=== PATIENT | male | born 1980 | race Caucasian/White ===

== ENCOUNTER 2017-09-22 19:46 | Inpatient (IN) ==
[2017-09-22] MEDS ORDERED: IOPAMIDOL 100 ML BOTTLE IJ ONE (19:47)
--- NOTE | 2017-09-22 20:40 | Emergency Department Note ---
Abdominal Pain HPI - General Chief Complaint: Abdominal Pain Stated Complaint: Stomach Ache Time Seen by Provider: 09/22/17 20:38 - History of Present Illness HPI Narrative: patient complains of mid epigastric since about 5:00 this morning. He vomited twice today. He still feels nauseated. He states he was laying around awith a stomach ache. Pain was in the epigastric are Similar pain before in the past when he's eaten too much. No fevers. No diarrhea. - Related Data Home Medications Medication Instructions Recorded Confirmed No Known Home Meds [No Known Home 09/22/17 09/22/17 Meds] Allergies Allergy/AdvReac Type Severity Reaction Status Date / Time No Known Drug Allergies Allergy Verified 09/22/17 19:52 Review of Systems All systems ED: reviewed and negative except as stated. Abdominal Pain PMH - Past Medical History Medical history: Reports: other (history of back pain) Surgical history ED: Reports: orthopedic, other - Social History Smoking status: Current every day smoker Alcohol use: Reports: Rarely Drug use: Reports: marijuana Physical Exam - General Limitations: no limitations General appearance: alert - Head Head exam: atraumatic, normocephalic - Eye Eye exam: Present: normal appearance, PERRL, EOMI. Absent: scleral icterus, conjunctival injection - ENT ENT exam: normal exam, normal oropharynx, mucous membranes moist - Neck Neck exam: Present: normal inspection, full ROM, trachea midline. Absent: tenderness - Chest Chest inspection: Present: normal inspection, symmetric chest wall rise - Respiratory Respiratory exam: Present: normal lung sounds bilaterally. Absent: respiratory distress, wheezes - Cardiovascular Cardiovascular exam: Present: regular rate, normal rhythm, normal heart sounds - Abdominal Exam Abdominal exam: Present: tenderness, normal bowel sounds. Absent: soft, distention, guarding, rebound, rigidity Abdominal tenderness: Present: epigastrium, mild - Extremities Exam Extremities exam: Present: normal inspection, full ROM - Back Exam Back exam: Present: normal inspection. Absent: CVA tenderness (R), CVA tenderness (L) - Neurological Exam Neurological exam: Present: alert, oriented X3, CN II-XII intact - Psychiatric Psychiatric exam: Present: normal affect, normal mood - Skin Skin exam: Present: warm, dry, intact Course - Reevaluation(s) Reevaluation #1: Later he told us that he took about 2 mg of Suboxone yesterday morning. He seemed okay during the day today. He got from a friend and seemed to be asymptomatic yesterday during the day. It is early in the morning with his symptoms started. Denies any bowel movement today, repeat abdominal exam was some discomfort right lower quadrant at this time. Vital Signs Temperature 97.7 F 09/22/17 19:47 Pulse Rate 64 09/22/17 19:47 Respiratory Rate 16 09/22/17 19:47 Blood Pressure 134/84 09/22/17 19:47 Pulse Oximetry (%) 100 09/22/17 19:47 Temperature 97.7 F 09/22/17 19:47 Pulse Rate 64 09/22/17 19:47 Respiratory Rate 16 09/22/17 19:47 Blood Pressure 134/84 09/22/17 19:47 Pulse Oximetry (%) 100 09/22/17 19:47 Abdominal Pain - MDM Narrative Medical decision making narrative: It turns out he ends up having a small bowel obstruction, appendix looked normal. At this point we will admit him to hospital, general surgery contacted , initial orders written. We will try NG tube decompression, IV fluids and pain management and proceed from there. Final diagnosis is small bowel obstruction, undetermined etiology. - Lab Data Result diagrams: 09/22/17 20:53 09/22/17 20:53 Lab Results 09/22/17 09/22/17 09/22/17 Range/Units 20:53 20:53 20:53 WBC 14.0 H (4.5-11.0) K/mcL RBC 5.38 (4.50-5.90) M/mcL Hgb 16.8 H (13.5-16.5) g/dL Hct 48.9 (41.0-55.0) % MCV 90.8 (80.0-100.0) fL MCH 31.1 (26.0-34.0) pg MCHC 34.3 (31.0-36.0) g/dL RDW 12.1 (11.5-14.5) % Plt Count 190 (140-440) K/mcL MPV 8.6 (7.4-10.4) fL Gran % 86.4 H (38.0-78.0) % Lymph % (Auto) 9.1 L (15.5-49.0) % [place] % (Auto) 3.2 (1.0-12.0) % Eos % (Auto) 1.2 (0.0-7.0) % Baso % (Auto) 0.1 (0.0-2.0) % Gran # 12.1 H (1.8-8.0) K/mcL Lymph # (Auto) 1.3 L (1.5-4.8) K/mcL [place] # (Auto) 0.4 (0.1-0.9) K/mcL Eos # (Auto) 0.2 (0.0-0.7) K/mcL Baso # (Auto) 0 (0.0-0.3) K/mcL Sodium 140 (133-145) mmol/L Potassium 4.0 (3.3-5.1) mmol/L Chloride 98 (96-108) mmol/L Carbon Dioxide 29 (22-30) mmol/L Anion Gap 13.0 (8-16) BUN 16 (6-20) mg/dl Creatinine 0.7 (0.7-1.2) mg/dl GFR Calculation 121 Glucose 134 H (70-105) mg/dL Calcium 9.6 (8.6-10.4) mg/dl Total Bilirubin 0.5 (0.0-1.0) mg/dL AST 22 (0-37) U/l ALT 31 (0-40) U/l Alkaline Phosphatase 61 (39-117) U/L C-Reactive Protein 1.9 H (0.0-0.8) mg/dl Total Protein 7.1 (5.9-8.4) gm/dL Albumin 4.2 (3.2-5.2) gm/dL Globulin 2.9 (2.2-3.7) gm/dL Albumin/Globulin Ratio 1.4 (1.0-2.3) Lipase 12 (7-60) U/L Disposition Pt seen by M[facility] MACHINE OPERATOR/PA only: No Clinical Impression: Small bowel obstruction Disposition: Xfer As Inpt ([facility]) Condition: Good
[2017-09-22] MEDS ORDERED: PANTOPRAZOLE 40 MG VIAL IV ONE (20:41)
[2017-09-22] MEDS ORDERED: HYDROmorphone 2 MG/ML SYRINGE IV PRN (20:41)
[2017-09-22] MEDS ORDERED: ONDANSETRON 4 MG/2 ML VIAL IV ONE (20:41)
[2017-09-22] MEDS ORDERED: LACTATED RINGERS 1,000 ML IV ONE (20:41)
[2017-09-22] MEDS ORDERED: diphenhydrAMINE 50 MG/ML VIAL IV ONE (21:20)
[2017-09-22] MEDS ORDERED: PROMETHAZINE 25 MG/ML VIAL IV ONE (21:20)
[2017-09-22 21:57] LABS: Basophils # (Auto) 0 K/mcL (0.0-0.3); Basophils % (Auto) 0.1 % (0.0-2.0); Eosinophils # (Auto) 0.2 K/mcL (0.0-0.7); Eosinophils % (Auto) 1.2 % (0.0-7.0); Granulocytes % (Auto) 86.4 % (38.0-78.0); Lymphocytes # (Auto) 1.3 K/mcL (1.5-4.8); Lymphocytes % (Auto) 9.1 % (15.5-49.0); Mean Cell Volume 90.8 fL (80.0-100.0); Mean Corpuscular HGB Conc 34.3 g/dL (31.0-36.0); Mean Corpuscular Hemoglobin 31.1 pg (26.0-34.0); Monocytes # (Auto) 0.4 K/mcL (0.1-0.9); Monocytes % (Auto) 3.2 % (1.0-12.0); Platelet Count 190 K/mcL (140-440); RBC 5.38 M/mcL (4.50-5.90); Red Cell Distribution Width 12.1 % (11.5-14.5)
[2017-09-22 22:15] LABS: ALT/SGPT 31 U/l (0-40); Albumin 4.2 gm/dL (3.2-5.2); Albumin/Globulin Ratio 1.4 (1.0-2.3); Alkaline Phosphatase 61 U/L (39-117); Blood Urea Nitrogen 16 mg/dl (6-20); Lipase 12 U/L (7-60)
[2017-09-23] MEDS ORDERED: ONDANSETRON 4 MG/2 ML VIAL IV PRN (00:03)
[2017-09-23] MEDS ORDERED: LIDOCAINE JEL 2% 1 TUBE 30GM TOPICAL ONE (00:36)
[2017-09-23] MEDS: 0.45 % SODIUM CHLORIDE 1,000 ML IV SCH ×4 (01:36→21:40)
--- NOTE | 2017-09-23 07:56 | XRay Report ---
HISTORY: Reason for Exam: Acute onset abdominal pain with nausea and vomiting FINDINGS: There are multiple loops of dilated small intestine with air-fluid levels. There is also moderate amount of fluid in the stomach. Normal amount stool is seen in the ascending colon. Distal colon is decompressed. No free intra-abdominal air is present. There is no apparent soft tissue mass or abnormal calcification. There are degenerative changes at the L4-S1 disc space level. IMPRESSION: Distal small bowel obstruction Interpreted and Authenticated by: Reuben Llanos 09/23/17
--- NOTE | 2017-09-23 08:04 | Cat Scan Report ---
CLINICAL INFORMATION: Reason for Exam:air fluid levels with small bowel obstruction FINDINGS: The patient was imaged following intravenous but no oral contrast scanning from the diaphragm to the symphysis pubis. Sagittal and coronal reformats were created. The lung bases are clear. The liver is normal in size. There is a 5 mm subcapsular cyst high in the medial segment left lobe. Gallbladder is partially contracted but there are no stones within the lumen of the sales not thickened or inflamed. The bile ducts are nondilated. The spleen is normal in size and homogeneous. There is no mass or inflammation the pancreas. The adrenals and kidneys are normal. No kidney stone or hydronephrosis are present. The stomach and small intestine are distended with a large amount of fluid. There is also a large amount of gas in the small intestine with multiple air-fluid levels. The mid small bowel measures up to 4.8 cm in diameter. The distal ileum is decompressed. The transition point cannot be clearly identified but is roughly in the midline of the upper pelvis. The colon is normal and the appendix is noninflamed. There is a small amount of ascites in the pelvis. No mass, free intra-abdominal air or abscess are identified within the abdomen or pelvis. There is also no evidence of a hernia or volvulus. Four Lumbar vertebra are present. There is disc space narrowing and spur formation at L4 S1. Is also mild arthritis in the SI joints bilaterally. IMPRESSION: Distal small bowel obstruction. The etiology is not clearly identified. Interpreted and Authenticated by: Reuben Llanos 09/23/17
--- NOTE | 2017-09-23 08:09 | XRay Report ---
HISTORY: Reason for Exam:Confirm NG placement for small bowel obstruction FINDINGS: There is a nasogastric tube in the fundus of the stomach pointing towards the left lateral abdominal wall. There is a moderate amount of gas in the stomach. There is less gastric fluid now than there was on the preceding CT scan. There are still dilated loops of small intestine in the upper abdomen. Lung bases are clear. IMPRESSION: Well-positioned nasogastric tube in the fundus of the stomach Persistent small bowel obstruction Interpreted and Authenticated by: Reuben Llanos 09/23/17
[2017-09-23] MEDS ORDERED: BENZOCAINE 1 SPRAY BOTTLE TOPICAL PRN (09:21)
--- NOTE | 2017-09-23 11:13 | General Surg History&Physical ---
History of Present Illness Patient information: Note initiated : 09/23/17 at 11:08 am Service Date, if different from initiated Date: [] Patient: Lake Chen 37 y/o M admitted on 09/23/17 for Stomach Ache/ Small Bowel Obstruction. Chief Complaint: [Abdominal pain nausea and vomiting] 1 1 is HPI: Mr. Chen is a 37 year old M with acute onset of severe abdominal pain followed by nausea and vomiting about 0500 on 22 September.. The pain was in the mid abdomen and continued throughout the day. He had 4 episodes of severe emesis. He finally came to the emergency room where it was noted that he had a distended abdomen with x-rays and CT scan showing multiple dilated loops of small bowel with air-fluid levels compatible with small bowel obstruction. He states that he had a bowel movement yesterday in the evening but cannot remember the last time that he has had flatus. He has had about 20 pound weight loss over the last 6-8 weeks which he attributes to not having a stable residence and not having regular meals. There is no history of melena, hematochezia, change in stool size. 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 Medications and Allergies Home Medications Medication Instructions Recorded Confirmed Type No Known Home Meds [No Known Home 09/22/17 09/22/17 History Meds] Allergies Allergy/AdvReac Type Severity Reaction Status Date / Time No Known Drug Allergies Allergy Verified 09/22/17 19:52 Exam Temp Pulse Resp BP Pulse Ox 97.8 F 67 20 118/75 100 09/23/17 07:26 09/23/17 07:26 09/23/17 07:26 09/23/17 07:26 09/23/17 07:26 - General physical appearance well developed, well nourished, no distress - Eyes PERRL, normal ocular movement - ENT normal pinna, normal nares, normal mucosa, no hearing loss, no congestion - Head Head exam IM: Present: atraumatic, normocephalic - Neck no masses, no bruits, trachea midline, no lymphadectomy, no venous distension - Cardiovascular Cardiovascular exam IM: Present: normal rate and rhythm - Respiratory normal expansion, normal respiratory effort, clear to percussion, clear to auscultation - Abdomen Abdomen: Present: soft, tender (Mild mid abdominal tenderness with active bowel sounds no palpable mass and no major distention), bowel sounds Hernia: Present: none - Genitourinary Present: normal penis with no external lesions - Integumentary Present: no rash, no growths, no abnormal pigmentation - Neurologic Present: normal coordination, normal sensation - Musculoskeletal Present: normal gait, normal posture - Psychiatric Present: oriented to time, oriented to person, oriented to place, speech is normal, memory intact Assessment and Plan (1) Small bowel obstruction Continue nasogastric suction Schedule small bowel follow-through as soon as possible If patient does not decompress with small bowel follow-through will proceed with laparotomy Status: Acute (2) Recent unexplained weight loss Status: Acute
[2017-09-23 12:29] LABS: Amphetamine Screen,Urine SUSPECT POSITIVE (NONDETECTED); Benzodiazepines Screen,Urine SUSPECT POSITIVE (NONDETECTED); Cocaine Screen,Urine NONE DETECTED (NONDETECTED); Opiate Screen,Urine SUSPECT POSITIVE (NONDETECTED); Oxycodone, Urine Screen NONE DETECTED (NONDETECTED)
--- NOTE | 2017-09-23 12:51 | XRay Report ---
HISTORY: Reason for Exam:Follow up from [facility] FINDINGS: Dilute Gastrografin contrast was injected through the nasogastric tube into the stomach. Serial images were acquired following the contrast passed through the stomach and small bowel into the colon. The contrast reached the proximal colon at one and a half hours. Nasogastric tube is well positioned in the fundus the stomach. The duodenum and jejunum are normal in caliber and have a normal mucosal pattern. The distal ileum is dilated and measures over 3 cm in diameter. Overall there has been a significant improvement of the small bowel dilatation since the prior x-ray and CT scan done on 09/22/17.. A poorly defined intraluminal filling defect is present in the cecum near the level of the ileocecal valve. It is difficult to clearly identify the terminal ileum at the ileocecal valve due to dilution of the contrast and overlying loops of dilated ileum. There is much less stool in the right side of the colon today than the was at the time of the CT done on 09/22/17.. IMPRESSION: Resolving distal small bowel obstruction. The obstruction appears to be at or near the level of the ileocecal valve. Moderate size intraluminal filling defect in the cecum, near the ileocecal valve. This could be stool or neoplasm. This could be further evaluated by colonoscopy. Interpreted and Authenticated by: Reuben Llanos 09/23/17
[2017-09-23] MEDS: METOCLOPRAMIDE 10 MG/2 ML VIAL IV SCH ×2 (13:39→17:14)
[2017-09-23] MEDS ORDERED: MAGNESIUM CITRATE 300 ML ORAL.SOL PO SCH (14:01)
[2017-09-23] MEDS ORDERED: MAGNESIUM CITRATE 300 ML ORAL.SOL PO ONE ×2 (14:30→18:00)
[2017-09-24] MEDS: METOCLOPRAMIDE 10 MG/2 ML VIAL IV SCH ×2 (00:06→05:41)
[2017-09-24] MEDS: 0.45 % SODIUM CHLORIDE 1,000 ML IV SCH ×2 (04:39→10:09)
[2017-09-24 07:07] LABS: Basophils # (Auto) 0 K/mcL (0.0-0.3); Basophils % (Auto) 0.2 % (0.0-2.0); Eosinophils # (Auto) 0.1 K/mcL (0.0-0.7); Eosinophils % (Auto) 1.7 % (0.0-7.0); Granulocytes % (Auto) 59.5 % (38.0-78.0); Lymphocytes # (Auto) 2.3 K/mcL (1.5-4.8); Lymphocytes % (Auto) 31.7 % (15.5-49.0); Mean Cell Volume 92.6 fL (80.0-100.0); Mean Corpuscular HGB Conc 34.7 g/dL (31.0-36.0); Mean Corpuscular Hemoglobin 32.2 pg (26.0-34.0); Monocytes # (Auto) 0.5 K/mcL (0.1-0.9); Monocytes % (Auto) 6.9 % (1.0-12.0); Platelet Count 156 K/mcL (140-440); RBC 4.16 M/mcL (4.50-5.90); Red Cell Distribution Width 12.5 % (11.5-14.5)
[2017-09-24 07:49] LABS: ALT/SGPT 19 U/l (0-40); Albumin 3.5 gm/dL (3.2-5.2); Alkaline Phosphatase 48 U/L (39-117); Bilirubin,Direct < 0.2 mg/dL (0.0-0.3); Blood Urea Nitrogen 10 mg/dl (6-20); Gamma Glutamyl Transpeptidase 7 U/L (8-61); Magnesium 2.2 mg/dL (1.6-2.5); Uric Acid 3.7 mg/dL (2.5-8.0)
[2017-09-24 09:03] LABS: Albumin/Globulin Ratio 1.7 (1.0-2.3)
[2017-09-24] MEDS ORDERED: MIDAZOLAM 2 MG/2 ML VIAL IV ONE (09:10)
[2017-09-24] MEDS ORDERED: PROPOFOL 500 MG/50 ML BOTTLE IV ONE (09:10)
[2017-09-24] MEDS ORDERED: LACTATED RINGERS 250 ML IV PRN (09:23)
[2017-09-24] MEDS ORDERED: IPRATROPIUM/ALBUTEROL 3 ML AMPUL.NEB NEB PRN (09:23)
[2017-09-24] MEDS ORDERED: ONDANSETRON 4 MG/2 ML VIAL IV PRN ×3 (09:23→10:05)
[2017-09-24] MEDS ORDERED: diphenhydrAMINE 50 MG/ML VIAL IV PRN (09:23)
[2017-09-24] MEDS ORDERED: FLUMAZENIL 0.1 MG/ML ML IV PRN (09:23)
[2017-09-24] MEDS ORDERED: LACTATED RINGERS 1,000 ML IV SCH (09:30)
--- NOTE | 2017-09-24 09:45 | Brief Operative Note ---
Date of procedure: 09/24/17 Pre-op diagnosis: distal small bowel obstruction;possible cecal mass Post-op diagnosis: other (distal small bowell obstruction; normal colon) Procedure: colonoscopy Grafts/Implants: No Anesthesia: other (general) Findings: normal colon to cecum, no colonic mass noted Complications: none Surgeon: Angelo Wiseman Specimens Removed/Pathology: none sent Condition: stable Disposition: same day
[2017-09-24] MEDS ORDERED: FLU VACC QS2017-18 36MOS UP/PF 60 MCG/0.5 ML SYRINGE IM ONE (10:00)
[2017-09-24] MEDS ORDERED: 0.9 % SODIUM CHLORIDE 1,000 ML IV SCH (10:05)
[2017-09-24] MEDS ORDERED: oxyCODONE/APAP 5/325MG TABLET PO PRN (10:05)
[2017-09-24] MEDS ORDERED: PROMETHAZINE 25 MG/ML VIAL IV PRN (10:05)
[2017-09-24] MEDS ORDERED: HYDROmorphone 2 MG/ML SYRINGE IV PRN (10:05)
[2017-09-24] MEDS ORDERED: 0.45 % SODIUM CHLORIDE 1,000 ML IV SCH (10:05)
[2017-09-24] MEDS ORDERED: METOCLOPRAMIDE 10 MG/2 ML VIAL IV SCH (12:00)
[2017-09-24] MEDS ORDERED: PANTOPRAZOLE 40 MG PACKET PO SCH (17:00)
[2017-09-25] MEDS ORDERED: FLU VACC QS2017-18 36MOS UP/PF 60 MCG/0.5 ML SYRINGE IM ONE (10:00)
--- NOTE | 2017-09-29 16:31 | Operative Note ---
DATE OF OPERATION: 09/24/2017 PREOPERATIVE DIAGNOSIS: Distal small bowel obstruction and possible cecal mass. POSTOPERATIVE DIAGNOSIS: History of distal small bowel obstruction without any colonic abnormality with normal cecum. PROCEDURE: Colonoscopy. SURGEON: Angelo Wiseman M.D. FINDINGS: Normal colon to cecum. No colonic mass noted. DESCRIPTION: Under general anesthesia, the patient turned to the left lateral decubitus position. Digital examination of the anus was unremarkable. Scope was introduced and maneuvered to the cecum without difficulty. The cecum was well visualized with cannulation of the ileocecal valve and the terminal ileum. No abnormality was noted. Opening of the appendix was noted as well as the confluence of the taenia. Good retroflex and direct view of the cecum did not reveal any abnormality. The scope was gradually withdrawn. The ascending colon, transverse colon, descending, and sigmoid colon and rectum were normal. Retroflex view of the rectum was unremarkable. The patient tolerated the procedure well. He was awakened and transferred to the postanesthetic care unit in stable, satisfactory condition. LCS:erin Job ID: [id number] Doc ID: [id number] Angelo Wiseman M.D.
[2017-09-30 13:15] LABS: MDA NOT DETECTED
== END 2017-09-24 14:45 | disposition home or self-care (01) | DRG 390 ==
LOC: ED 19:46 → MEDSUR 09-23 01:21
PROVIDERS: ADMIT Family Medicine Adult Medicine; ATTEND Family Medicine Adult Medicine